=== PATIENT | female | born 1970 | race Caucasian/White ===

== ENCOUNTER → 2018-03-10 09:54 | Outpatient (CLI) | payer BC, SELFPAY ==
[2018-03-10 10:20] LABS: Add Manual Diff / Slide Review NO; Basophils Percent Auto 0.6 % (0-2); Hemoglobin 13.4 g/dL (12.0-16.0); Lymphocytes Percent Auto 40.4 % (25-40); Mean Corpuscular HGB Conc 34.3 % (30-36); Mean Corpuscular Hemoglobin 33.2 PG (26-34); Mean Corpuscular Volume 96.9 fL (80-100); Monocytes Percent Auto 8.4 % (3-14); Neutrophils Absolute Auto 2000 /uL (3000-5900); Neutrophils Percent Auto 48.6 % (50-75); Platelet Count 214 X10^3/uL (150-400); Red Blood Cell Count 4.03 X10^6/uL (4.0-5.2); Red Cell Distribution Width 12.6 % (11.6-14.8); White Blood Cell Count 4.2 X10^3/uL (4.5-11.0)
[2018-03-10 10:27] LABS: Alanine Aminotransferase 28 IU/L (9-52); Albumin 4.6 g/dL (3.5-5.0); Albumin Globulin Ratio 1.8 (1.0-2.8); Alkaline Phosphatase 62 U/L (38-126); Aspartate Aminotransferase 22 IU/L (14-36); BUN Creatinine Ratio 36.7 (6-22); Bilirubin Total 0.8 mg/dL (0.2-1.3); Blood Urea Nitrogen 22 mg/dL (7-17); Calcium 9.6 mg/dL (8.4-10.2); Carbon Dioxide 31 mmol/L (22-32); Chloride 102 mmol/L (98-107); Estimated Glomerular Filt Rate > 60.0 mL/min (>60); Globulin 2.6 g/dL (1.7-4.1); Glucose 88 mg/dL (70-100); HEMOLYSIS < 15 (0-50); Potassium 4.2 mmol/L (3.4-5.1); Sodium 142 mmol/L (137-145); Total Protein 7.2 g/dL (6.3-8.2)
--- NOTE | 2018-03-10 10:44 | DI.CT.S_ITS ---
PROCEDURE: CT CHEST ABD PEL W CON INDICATIONS: surveillance colon cancer TECHNIQUE: After the administration of oral and intravenous contrast, 5 mm thick sections acquired from the lung apices to the symphysis. 5 mm coronal and sagittal reformats were performed, with additional 7 mm coronal MIP reformats through the lungs. For radiation dose reduction, the following was used: automated exposure control, adjustment of mA and/or kV according to patient size. COMPARISON: [facility], CT, ABDOMEN/PELVIS WITH CONTRAST, 04/12/2016, 10:22. [facility], CT, ABDOMEN/PELVIS WITH CONTRAST, 05/07/2016, 11:58. [facility], CT, ABDOMEN/PELVIS WITH CONTRAST, 05/15/2016, 12:22. [facility], CT, ABDOMEN/PELVIS WITHOUT CONTRAS, 05/22/2016, 14:15. [facility], CT, CHEST/ABD/PEL WITH CONTRAST, 12/24/2016, 12:08. [facility], CT, CHEST/ABD/PEL WITH CONTRAST, 11/27/2017, 11:57. FINDINGS: Image quality: Excellent. CHEST: Lungs and pleura: The 4 mm subpleural nodule in the lateral right upper lobe, image 18, is unchanged from the exam of 12/24/2016. No acute airspace opacities. No pleural effusions or pneumothorax. Central and peripheral airways appear patent and normal in caliber. Mediastinum: Heart size is normal. No pericardial effusion. No mediastinal or hilar adenopathy by size criteria. Thoracic aorta and central pulmonary arteries are normal in size. Esophagus is normal in caliber. No hiatal hernia. Chest wall: No axillary or supraclavicular adenopathy by size criteria. Thyroid gland appears normal. ABDOMEN: Solid organs: Liver is normal in size and enhancement. The hypodense lesion in the left lobe of the liver is unchanged at 11 x 14 mm. The hypodense nodule with central vascularity in the posterolateral dome of liver is stable at 8 mm. The lobulated mass in the posterior inferior pole of the right lobe of liver is stable at 2.5 cm AP. Gallbladder appears normal. Biliary system is non dilated. Pancreas enhances normally. Spleen is normal in size and enhancement. No adrenal nodules. Kidneys demonstrate normal size and enhancement, without hydronephrosis. Peritoneum and bowel: Bowel loops demonstrate normal wall thickness and caliber. Suture line is again noted at the rectosigmoid junction, no focal mass lesions or thickening seen. No free fluid or air. Nodes and vessels: No retroperitoneal or mesenteric adenopathy by size criteria. Aorta and inferior vena cava are normal in size. Miscellaneous: No ventral hernias. PELVIS: Genitourinary: Bladder wall thickness is normal. The uterus and adnexa are unremarkable. Miscellaneous: No inguinal hernias or adenopathy. Bones: No suspicious bony lesions. No vertebral body compression fractures. IMPRESSION: 1. Stable, presumably treated hepatic metastases are identified. No new lesions seen. No adenopathy. No focal recurrence at the resection site of the rectosigmoid colon. 2. Stable 4 mm subpleural nodule in the right upper lobe. Dictated by: Anderson Reddy M.D. on 03/10/2018 at 11:49 Approved by: Anderson Reddy M.D. on 03/10/2018 at 12:12
[2018-03-10 11:28] LABS: Carcinoembryonic Antigen 2.1 ng/mL (0.1-3.0)
== END ==
PROVIDERS: Family Provider Physician Assistant Medical; PCP Physician Assistant Medical; Visit Provider Nurse Practitioner Gerontology
DX: C18.7 Malignant neoplasm of sigmoid colon (principal); R91.1 Solitary pulmonary nodule; R16.0 Hepatomegaly, not elsewhere classified
CPT/HCPCS: 36415; 71260; 74177; 80053; 82378; 85025; Q9967

== ENCOUNTER → 2018-05-07 15:14 | Outpatient (CLI) | payer BC, SELFPAY ==
[2018-05-07 15:49] LABS: Add Manual Diff / Slide Review NO; Basophils Percent Auto 0.5 % (0-2); Eosinophils Percent Auto 2.4 % (2-4); Hemoglobin 12.5 g/dL (12.0-16.0); Lymphocytes Percent Auto 40.4 % (25-40); Mean Corpuscular HGB Conc 34.6 % (30-36); Mean Corpuscular Hemoglobin 33.1 PG (26-34); Mean Corpuscular Volume 95.5 fL (80-100); Monocytes Percent Auto 9.2 % (3-14); Neutrophils Absolute Auto 2500 /uL (3000-5900); Neutrophils Percent Auto 47.5 % (50-75); Platelet Count 217 X10^3/uL (150-400); Red Blood Cell Count 3.77 X10^6/uL (4.0-5.2); Red Cell Distribution Width 12.5 % (11.6-14.8); White Blood Cell Count 5.2 X10^3/uL (4.5-11.0)
[2018-05-07 16:09] LABS: Alanine Aminotransferase 50 IU/L (9-52); Albumin 4.4 g/dL (3.5-5.0); Albumin Globulin Ratio 1.8 (1.0-2.8); Alkaline Phosphatase 61 U/L (38-126); Aspartate Aminotransferase 45 IU/L (14-36); BUN Creatinine Ratio 35.7 (6-22); Bilirubin Total 0.7 mg/dL (0.2-1.3); Blood Urea Nitrogen 25 mg/dL (7-17); Calcium 9.2 mg/dL (8.4-10.2); Carbon Dioxide 31 mmol/L (22-32); Chloride 104 mmol/L (98-107); Estimated Glomerular Filt Rate > 60.0 mL/min (>60); Globulin 2.5 g/dL (1.7-4.1); Glucose 100 mg/dL (70-100); HEMOLYSIS < 15 (0-50); Potassium 4.6 mmol/L (3.4-5.1); Sodium 145 mmol/L (137-145); Total Protein 6.9 g/dL (6.3-8.2)
[2018-05-07 16:39] LABS: Carcinoembryonic Antigen 2.2 ng/mL (0.1-3.0)
== END ==
PROVIDERS: Family Provider Physician Assistant Medical; PCP Physician Assistant Medical; Visit Provider Nurse Practitioner Gerontology
DX: C18.7 Malignant neoplasm of sigmoid colon (principal)
CPT/HCPCS: 36415; 80053; 82378; 85025

== ENCOUNTER 2018-06-17 10:51 | Day surgery (SDC) | payer BC, SELFPAY ==
--- NOTE | 2018-06-17 | PATH_ITS ---
[facility] Accession Number: [id number] . 01 Material submitted: . BIOPSY'S AT 15CM . 02 Diagnosis: 15 cm, Biopsy: Colonic mucosa with mild melanosis coli. Negative for active or microscopic colitis. Negative for granulomata, dysplasia or malignancy. MRV/06/18/2018 . 02 Electronically signed: . Fede Foss MD, PhD, Pathologist NPI- [id number] . 01 Gross description: . Received one formalin-filled container labeled with the patient's name and labeled 15 cm are two 0.3 to 0.5 cm portions of tissue. Entirely submitted in one cassette. ([facility]:[id number]) /[facility] . 02 Pathologist provided ICD-10: R19.4 . 02 CPT . 640658 Performed at: 01 [facility] [address] [id number] MD Rafi Hall MD Phone: [phone] Performed at: 02 [facility] [address] [place], [place] [id number] MD Manjeet Mederos MD Phone: [phone]
[2018-06-17 11:11] VITALS: BP 104/66; PULSE 78; RESP 12; TEMP 37; O2SAT 99; BMI 19.3
[2018-06-17] MEDS: SODIUM CHLORIDE 0.9% 1,000 ML 200 ML IV (11:30)
--- NOTE | 2018-06-17 12:21 | PM.HP.1 ---
History of Present Illness Date Patient Seen: 06/17/18 Time Patient Seen: 12:21 Chief complaint: [id number] COLONOSCOPY Narrative: Aleah 48-year-old lady who is 2 years status post sigmoid colon resection for a stage III colon malignancy. She completed all of her treatment and then underwent a repair of an incisional hernia. She returns today for colonoscopy for surveillance. She denies any new problems or symptoms related to her GI tract. She reports she is in her usual state of health. Patient History Family & Social History Family History: Reviewed 06/17/18 by Lizett Mancia MD Social History: household members spouse Meds Home Medications Medication Instructions Recorded Confirmed Type levothyroxine [Synthroid] 0.075 mg PO QDAY #0 03/20/16 06/17/18 History cyanocobalamin (vitamin B-12) 5,000 mcg PO QDAY #0 02/13/17 06/17/18 History [Vitamin B-12] rosuvastatin [Crestor] 5 mg PO QDAY #0 09/11/17 06/17/18 History Allergies Allergy/AdvReac Type Severity Reaction Status Date / Time No Known Drug Allergies Allergy Verified 06/17/18 11:10 Review of Systems Review of Systems All systems reviewed & are unremarkable except as noted in HPI and below Exam Vital Signs (past 8 hours): - 06/17/18 11:11 Temperature 98.6 F Pulse Rate 78 Respiratory Rate 12 Blood Pressure 104/66 Pulse Oximetry 99 Oxygen Delivery Method Room Air Narrative Exam Narrative: Very pleasant well-nourished well-developed lady in no distress HEENT: Normocephalic and atraumatic, pupils equal round reactive to light accommodation with anicteric sclera Lungs: Clear to auscultation bilaterally Heart: Regular rate rhythm without murmur rub or gallop Abdomen: Soft, nontender, active bowel sounds. Lower midline incision is well-healed and without erythema or drainage. Extremities: Warm and well-perfused and without edema. Assessment & Plan Plan: Assessment/Plan Narrative: Wonderful 48-year-old lady here for a surveillance colonoscopy. While she is here today, we are going to remove a irritating stitch from her prior ostomy site. We discussed risks and benefits of colonoscopy and the patient expressed a desire to complete this procedure today
--- NOTE | 2018-06-17 12:24 | P.HP_ITS ---
History of Present Illness Date Patient Seen: 06/17/18 Time Patient Seen: 12:21 Chief complaint: [id number] COLONOSCOPY Narrative: Aleah 48-year-old lady who is 2 years status post sigmoid colon resection for a stage III colon malignancy. She completed all of her treatment and then underwent a repair of an incisional hernia. She returns today for colonoscopy for surveillance. She denies any new problems or symptoms related to her GI tract. She reports she is in her usual state of health. Patient History Family & Social History Family History: Reviewed 06/17/18 by Lizett Mancia MD Social History: household members spouse Meds Home Medications Medication Instructions Recorded Confirmed Type levothyroxine [Synthroid] 0.075 mg PO QDAY #0 03/20/16 06/17/18 History cyanocobalamin (vitamin B-12) 5,000 mcg PO QDAY #0 02/13/17 06/17/18 History [Vitamin B-12] rosuvastatin [Crestor] 5 mg PO QDAY #0 09/11/17 06/17/18 History Allergies Allergy/AdvReac Type Severity Reaction Status Date / Time No Known Drug Allergies Allergy Verified 06/17/18 11:10 Review of Systems Review of Systems All systems reviewed & are unremarkable except as noted in HPI and below Exam Vital Signs (past 8 hours): - 06/17/18 11:11 Temperature 98.6 F Pulse Rate 78 Respiratory Rate 12 Blood Pressure 104/66 Pulse Oximetry 99 Oxygen Delivery Method Room Air Narrative Exam Narrative: Very pleasant well-nourished well-developed lady in no distress HEENT: Normocephalic and atraumatic, pupils equal round reactive to light accommodation with anicteric sclera Lungs: Clear to auscultation bilaterally Heart: Regular rate rhythm without murmur rub or gallop Abdomen: Soft, nontender, active bowel sounds. Lower midline incision is well- healed and without erythema or drainage. Extremities: Warm and well-perfused and without edema. Assessment & Plan Plan: Assessment/Plan Narrative: Wonderful 48-year-old lady here for a surveillance colonoscopy. While she is here today, we are going to remove a irritating stitch from her prior ostomy site. We discussed risks and benefits of colonoscopy and the patient expressed a desire to complete this procedure today
[2018-06-17] MEDS: MIDAZOLAM 5 MG/5 ML VIAL IV (12:53)
[2018-06-17] MEDS: fentaNYL 250 MCG/5 ML INJ IV (12:55)
[2018-06-17] MEDS: LIDOCAINE 2% W/EPI INJ 20 ML INJ (12:58)
--- NOTE | 2018-06-17 13:03 | P.OP_ITS ---
Operative Date/Time/Diagnoses Date of procedure: 06/17/18 Time of procedure: 12:57 Pre-op diagnosis: Personal history of sigmoid colon cancer Post-op diagnosis: same Procedure & Clinicians Procedure: Endoscopy to the level of the anastomosis at 15 cm Same procedure as scheduled: No (Colonoscopy was scheduled ) Indications: Last colonoscopy 2 years ago Surgeon: Lizett Mancia Anesthesia Type: Sedation (Versed 8 mg; fentanyl 300 mcg) Operative Notes Findings: 1. Normal appearing mucosa with a very stenotic anastomosis at 15 cm from the anal verge. Less than 5 mm in diameter. Multiple biopsies were taken in the surrounding tissue. 2. Fragments of PDS suture removed from left anterior abdominal wall incision site. Closure Type: not applicable Specimen(s): other (Mucosal biopsies of 15 cm) Estimated Blood Loss (mL): 1 Procedure in detail: After obtaining informed consent, the patient brought the GI suite placed in left lateral decubitus position on examination table. Following the successful induction of sedation with incremental doses of fentanyl and Versed, a time-out was held per SCOAP protocol the The colonoscope was lubricated and gently passed to 15 cm from the anal verge which was the site of the obvious anastomosis. The anastomosis was visualized centrally and marked with a silk suture. Lateral to that we could see the blind end of the anastomotic pouch. This was explored to be sure this was not the actual lumen. The lumen itself was less than 5 mm in diameter. We initially made an attempt to pass the scope beyond the lumen but realized that the 1 cm scope was going to be far too big to get through the lumen without significant stretching. We pulled the scope back and took biopsies all around this area. Again, the mucosa was normal in appearance. The scope was then withdrawn from the patient's body and the procedure completed. No other mucosal abnormalities were appreciated. The patient was then rolled to the supine position and the left lower quadrant prepped and the standard surgical fashion. A tiny incision was created directly over the stitch that was palpable. Stitch was grasped with a hemostat clamp and removed using scalpel. The wound was checked for hemostasis cleaned again and dressed with Dermabond and a Band-Aid. All sponge , needle, and instrument counts were correct at the conclusion of the case. Patient was allowed to awake from anesthesia without difficulty and taken to the post anesthesia care unit in good condition. Complications: none (Unable to pass the colonoscope beyond 15 cm due to anastomotic stenosis) Condition: stable Disposition: PACU Plan for aftercare: 1. Discharge to home 2. We will discuss options with Afua and Max, her .
[2018-06-17 13:04] VITALS: BP 101/70; PULSE 89; RESP 11; TEMP 36.8; O2SAT 100
[2018-06-17 13:08] VITALS: BP 98/64; PULSE 88; RESP 11; O2SAT 100
--- NOTE | 2018-06-17 13:10 | SUR.PHASEI ---
band aid on abdomen is clean, dry and intact.
--- NOTE | 2018-06-17 13:11 | SUR.PHASEI ---
band aid on abdomen is clean dry and intact
[2018-06-17 13:13] VITALS: BP 105/67; PULSE 88; RESP 12; O2SAT 99
[2018-06-17 13:47] VITALS: BP 100/68; PULSE 80; RESP 14; TEMP 36.9; O2SAT 100
== END 2018-06-17 13:48 | disposition home or self-care (01) ==
LOC: ENDO 10:56
PROVIDERS: Family Provider Physician Assistant Medical; PCP Physician Assistant Medical; Visit Provider Surgery
PROC: 0DJD8ZZ Inspection of Lower Intestinal Tract, Via Natural or Artificial Opening Endoscopic (ICD-10-PCS; CPT 45378; principal; 2018-06-17 12:00)
DX: Z85.038 Personal history of other malignant neoplasm of large intestine (principal); M79.5 Residual foreign body in soft tissue; K62.4 Stenosis of anus and rectum
CPT/HCPCS: 45331; 15850; 99152; J2250; J3010

== ENCOUNTER → 2019-02-27 09:03 | Outpatient (CLI) | payer BC, SELFPAY ==
--- NOTE | 2019-02-27 09:05 | DI.CT.S_ITS ---
PROCEDURE: CT CHEST ABD PEL W CON INDICATIONS: f/u colon cancer TECHNIQUE: After the administration of oral and intravenous contrast, 5 mm thick sections acquired from the lung apices to the symphysis. 5 mm coronal and sagittal reformats were performed, with additional 7 mm coronal MIP reformats through the lungs. For radiation dose reduction, the following was used: automated exposure control, adjustment of mA and/or kV according to patient size. COMPARISON: [facility], CT, ABDOMEN/PELVIS WITH CONTRAST, 04/12/2016, 10:22. [facility], CT, CHEST/ABD/PEL WITH CONTRAST, 11/27/2017, 11:57. [facility], MR, ABDOMEN W&WO CONTRAST, 12/31/2016, 19:24. [facility], CT, CHEST/ABD/PEL WITH CONTRAST, 12/24/2016, 12:08. [facility], CT, CT CHEST ABD PEL W CON, 03/10/2018, 11:08. CT pulmonary angiogram 06/04/2016. FINDINGS: Image quality: Excellent. CHEST: Lungs and pleura: No acute airspace opacities. Stable right upper lobe pulmonary nodule measuring 0.4 cm (), since at least 06/04/2016 suggesting a benign etiology. No new and larger pulmonary nodules. No mass. No pleural effusions or pneumothorax. Central and peripheral airways appear patent and normal in caliber. Mediastinum: Heart size is normal. No pericardial effusion. No mediastinal or hilar adenopathy by size criteria. Thoracic aorta and central pulmonary arteries are normal in size. Esophagus is normal in caliber. No hiatal hernia. Chest wall: No axillary or supraclavicular adenopathy by size criteria. Thyroid gland is unremarkable. ABDOMEN: Solid organs: No new or enlarging hepatic lesion. Stable Segment 6 lesion measuring 2.9 x 2.8 cm, (), remotely measured 2.7 x 2.5 cm in 2016. Stable segment 3 lesion measuring approximately 1.7 x 1.2 cm, (), previously 1.6 x 1.4 cm. These lesions previously demonstrated peripheral nodular discontinuous enhancement as well as no restricted diffusion on the prior MRI and are most compatible with benign hemangiomas rather than metastases. Gallbladder is normal. No biliary ductal dilatation. Spleen is not enlarged. Pancreas is normal. No adrenal nodule. Kidneys enhance symmetrically. No solid renal mass. Peritoneum and bowel: Sigmoid colon and a anastomosis, (/). No mass to suggest local recurrence. Bowel loops demonstrate normal wall thickness and caliber. No free fluid or air. Nodes and vessels: No retroperitoneal or mesenteric adenopathy by size criteria. No aortic aneurysm. The IVC is prominent in size some of the prior exams. Miscellaneous: No ventral hernias. PELVIS: Genitourinary: Bladder wall thickness is normal. Uterus and ovaries are within normal limits. No significant free fluid. Air in the vagina. Miscellaneous: No inguinal hernias or adenopathy. Bones: No suspicious bony lesions. No vertebral body compression fractures. IMPRESSION: No metastatic disease identified. Dictated by: Billy Bradshaw M.D. on 02/27/2019 at 14:02 Approved by: Billy Bradshaw M.D. on 02/27/2019 at 14:21
== END ==
PROVIDERS: Family Provider Physician Assistant Medical; PCP Physician Assistant Medical
DX: C18.7 Malignant neoplasm of sigmoid colon (principal)
CPT/HCPCS: 71260; 74177; Q9967

== ENCOUNTER → 2020-03-29 13:00 | Outpatient (CLI) | payer BC, SELFPAY ==
--- NOTE | 2020-03-29 13:07 | DI.CT.S_ITS ---
PROCEDURE: CT CHEST ABD PEL W CON INDICATIONS: surveillance resected colon cancer TECHNIQUE: After the administration of oral and intravenous contrast, 5 mm thick sections acquired from the lung apices to the symphysis. 5 mm coronal and sagittal reformats were performed, with additional 7 mm coronal MIP reformats through the lungs. For radiation dose reduction, the following was used: automated exposure control, adjustment of mA and/or kV according to patient size. COMPARISON: [facility], CT, ABDOMEN/PELVIS WITH CONTRAST, 05/15/2016, 12:22. [facility], CT, ABDOMEN/PELVIS WITHOUT CONTRAS, 05/17/2016, 16:32. [facility], CT, ABDOMEN/PELVIS WITHOUT CONTRAS, 05/22/2016, 14:15. [facility], CT, ABDOMEN WITHOUT CONTRAST, 05/23/2016, 12:14. [facility], CT, CHEST/ABD/PEL WITH CONTRAST, 12/24/2016, 12:08. [facility], MR, ABDOMEN W&WO CONTRAST, 12/31/2016, 19:24. [facility], CT, CT CHEST ABD PEL W CON, 03/10/2018, 11:08. [facility], CT, CT CHEST ABD PEL W CON, 02/27/2019, 10:19. FINDINGS: Image quality: Excellent. CHEST: Lungs and pleura: The 4 mm nodule in the right upper lobe appears unchanged in size (series 3 image 89). A 6 mm nodule on the left hemidiaphragm (series 2, image 51) is also stable. No acute airspace opacities. No pleural effusions or pneumothorax. Central and peripheral airways appear patent and normal in caliber. Mediastinum: Heart size is normal. No pericardial effusion. No mediastinal or hilar adenopathy by size criteria. Thoracic aorta and central pulmonary arteries are normal in size. Esophagus is normal in caliber. No hiatal hernia. Chest wall: No axillary or supraclavicular adenopathy by size criteria. Thyroid gland is normal. ABDOMEN: Solid organs: Liver is normal in size and enhancement. There is a 2.9 x 2.8 cm mass in the posterior segment of right hepatic lobe (segment 6), stable. A 1.8 cm lesion in the lateral segment of the left hepatic lobe (segment 3) is also unchanged. Gallbladder is normal. Biliary system is non dilated. Pancreas enhances normally. Spleen is normal in size and enhancement. No adrenal nodules. Kidneys demonstrate normal size and enhancement, without hydronephrosis. Peritoneum and bowel: There is surgical anastomosis in distal sigmoid colon. There is a large amount of stool in colon. Bowel loops demonstrate normal wall thickness and caliber. No free fluid or air. Nodes and vessels: No retroperitoneal or mesenteric adenopathy by size criteria. Aorta and inferior vena cava are normal in size. Inhomogeneous enhancement of the SMV is likely a flow related phenomenon. Miscellaneous: No ventral hernias. PELVIS: Genitourinary: Bladder wall thickness is normal. Uterus is unremarkable. No pathological free-fluid. Miscellaneous: No inguinal hernias or adenopathy. Bones: No suspicious bony lesions. No vertebral body compression fractures. IMPRESSION: 1. Stable right upper lobe and left lower lobe nodules. 2. Stable hepatic lesions. 3. No lymphadenopathy in thorax, abdomen or pelvis. 4. A large amount of stool in colon. Dictated by: Eunice Knott M.D. on 03/29/2020 at 16:03 Approved by: Eunice Knott M.D. on 03/29/2020 at 16:47
[2020-03-29 13:24] LABS: Add Manual Diff / Slide Review NO; Basophils Absolute Auto 0 /uL (0-100); Basophils Percent Auto 0.5 % (0-2); Eosinophils Absolute Auto 100 /uL (0-450); Eosinophils Percent Auto 2.2 % (2-4); Hematocrit 38.1 % (36-46); Hemoglobin 13.1 g/dL (12.0-16.0); Lymphocytes Absolute Auto 1400 /uL (1100-4500); Lymphocytes Percent Auto 35.4 % (25-40); Mean Corpuscular HGB Conc 34.5 % (30-36); Mean Corpuscular Hemoglobin 32.7 PG (26-34); Monocytes Absolute Auto 400 /uL (0-900); Monocytes Percent Auto 10.1 % (3-14); Neutrophils Absolute Auto 2000 /uL (1500-7000); Neutrophils Percent Auto 51.8 % (50-75); Platelet Count 223 X10^3/uL (150-400); Red Blood Cell Count 4.01 X10^6/uL (4.0-5.2); Red Cell Distribution Width 12.8 % (11.6-14.8); White Blood Cell Count 3.9 X10^3/uL (4.5-11.0)
[2020-03-29 13:35] LABS: Alanine Aminotransferase 21 IU/L (<35); Albumin 4.6 g/dL (3.5-5.0); Albumin Globulin Ratio 1.6 (1.0-2.8); Alkaline Phosphatase 55 U/L (38-126); Aspartate Aminotransferase 28 IU/L (14-36); BUN Creatinine Ratio 41.4 (6-22); Blood Urea Nitrogen 24 mg/dL (7-17); Calcium 9.5 mg/dL (8.4-10.2); Carbon Dioxide 30 mmol/L (22-32); Chloride 104 mmol/L (98-107); Estimated Glomerular Filt Rate > 60.0 mL/min (>60); Globulin 2.9 g/dL (1.7-4.1); Glucose 94 mg/dL (70-100); HEMOLYSIS < 15 (0-50); Potassium 4.1 mmol/L (3.4-5.1); Sodium 139 mmol/L (137-145); Total Protein 7.5 g/dL (6.3-8.2)
[2020-03-29 14:06] LABS: Carcinoembryonic Antigen 2.2 ng/mL (0.1-3.0)
== END ==
PROVIDERS: Family Provider Physician Assistant Medical; PCP Physician Assistant Medical; Referring Provider Physician Assistant Medical; Visit Provider Internal Medicine Hematology & Oncology
DX: C18.9 Malignant neoplasm of colon, unspecified (principal); R91.8 Other nonspecific abnormal finding of lung field; K76.9 Liver disease, unspecified; Z98.0 Intestinal bypass and anastomosis status
CPT/HCPCS: 36415; 71260; 74177; 80053; 82378; 85025; Q9967

== ENCOUNTER → 2020-08-22 10:08 | Outpatient (CLI) | payer BC, SELFPAY ==
[2020-08-22 11:41] LABS: COVID19 -Nasal RAPID Negative (Negative)
== END ==
PROVIDERS: Family Provider Physician Assistant Medical; PCP Physician Assistant Medical; Visit Provider Surgery
DX: Z01.812 Encounter for preprocedural laboratory examination (principal); Z20.822 Contact with and (suspected) exposure to COVID-19
CPT/HCPCS: 87635; C9803

== ENCOUNTER 2020-08-23 06:34 | Day surgery (SDC) | payer BC, SELFPAY ==
[2020-08-18 07:58] VITALS: BMI 19.1
[2020-08-23] VITALS (8 sets, daily range): BP systolic 96–103; BP diastolic 50–62; PULSE 59–80; RESP 11–20; TEMP 36.2–37; O2SAT 97–100; BMI 19.1
[2020-08-23] MEDS: LACTATED RINGERS 1,000 ML 100 ML IV (07:32)
--- NOTE | 2020-08-23 07:41 | PM.HP.1 ---
History of Present Illness History of Present Illness Date Patient Seen: 08/23/20 Time Patient Seen: 07:41 Chief complaint: EXCISION OF SUTURE GRANULOMA Narrative: 50F hx of colon resection for cancer subsequent anastamotic leak followed by ileostomy and reversal. 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 No interval changes in health. Patient History Medical History Former smoker HLD (hyperlipidemia) Hypothyroid Surgical History History of colon resection (04/2017) History of removal of Port-a-Cath Family & Social History Family History Father Hypertension Heart disease Gallstones Bladder cancer Grandmother Stroke Social History: household members spouse Tobacco & Substance use: Tobacco type cigarettes Smoking Status Former smoker alcohol intake current alcohol intake frequency a few times a week Substance Use Type does not use Meds Home Medications and Allergies Home Medications Medication Instructions Recorded Confirmed Type levothyroxine [Synthroid] 0.075 mg PO QDAY #0 03/20/16 08/23/20 History atorvastatin 10 mg tablet 10 mg PO DAILY 05/18/20 08/23/20 History Allergies Allergy/AdvReac Type Severity Reaction Status Date / Time No Known Drug Allergies Allergy Verified 05/18/20 11:35 Review of Systems Review of Systems Narrative: A 10 point review of systems is negative except as noted in the HPI Exam Vital Signs (past 8 hours): - 08/23/20 07:15 Temperature 98.2 F Pulse Rate 73 Respiratory Rate 16 Blood Pressure 103/62 Pulse Oximetry 98 Oxygen Delivery Method Room Air Narrative Exam Narrative: General-no acute distress, well nourished adult woman HEENT-moist mucous membranes, no scleral icterus Neck-supple, no lymphadenopathy Chest- non labored respirations, clear to auscultation bilaterally Cardiac-regular rate no peripheral edema Abdomen-soft, nontender, non distended Extremities-warm, well perfused Neurological-alert and oriented, no focal deficits Assessment & Plan Assessment and plan (1) Suture granuloma: Status: Acute Assessment & Plan narrative: 50F with a suture granuloma sp multiple abdominal surgeries that requires excision. Attempt was made in office but not able to tolerate as it is at the level of the fascia. Plan for excision in the OR with sedation. Risks including bleeding, infection, damage to surrounding structures discussed.
[2020-08-23] MEDS: CEFAZOLIN 2 GM/100 ML FROZ.PIGGY IV (07:45)
--- NOTE | 2020-08-23 07:56 | SUR.OPER ---
Supine on padded OR bed, head on pillow, arms secured on padded arm boards at <90 degrees abduction, legs uncrossed, safety belt at thigh, tape over blanket over lower legs.
[2020-08-23] MEDS: BUPIVACAINE 0.25% (PF) VIAL 30 ML INJ (07:59)
--- NOTE | 2020-08-23 08:20 | PM.OP.1 ---
Operative Date/Time/Diagnoses Date of procedure: 08/23/20 Time of procedure: 08:21 Pre-op diagnosis: suture granuloma Post-op diagnosis: same Procedure & Clinicians Procedure: excision of suture granuloma Same procedure as scheduled: Yes Indications: 50F multiple prior abdominal surgeries related to colon cancer has a persistent suture granuloma of a fascial suture that could not be excised in office under local anesthesia Surgeon: Joss Tovar Click Yes if Unassisted: Yes Anesthesia Type: MAC +/- Operative Notes Findings: Chronic suture granuloma of the fascia Closure Type: primary Specimen(s): none sent Estimated Blood Loss (mL): 5 Procedure in detail: Patient was brought to the operating room placed supine on table. Bilateral lower extremity compression devices were applied. Anesthesia was induced she was intubated with a LMA. She received Ancef prior to skin incision. She was prepped and draped in sterile fashion. Time-out was performed. An elliptical incision was made on the lower aspect of the midline scar over the suture granuloma. The subcutaneous tissue was excised down the level of the fascia where the suture granuloma was encountered. The suture was sharply excised and removed in its entirety. The wound was irrigated hemostasis was achieved wound was infiltrated with local anesthetic. Subcutaneous tissue was closed in interrupted fashion with 3-0 Vicryl followed by 4-0 Monocryl for the skin and Dermabond. She emerged from anesthesia was transferred to recovery room in stable condition. Complications: none Post-operative Condition: stable Disposition: same day surgery
== END 2020-08-23 09:04 | disposition home or self-care (01) ==
PROVIDERS: Family Provider Physician Assistant Medical; PCP Physician Assistant Medical; Referring Provider Internal Medicine; Visit Provider Surgery
PROC: (CPT 10120; principal; 2020-08-23 07:45)
DX: L92.3 Foreign body granuloma of the skin and subcutaneous tissue (principal); Z18.89 Other specified retained foreign body fragments; E78.5 Hyperlipidemia, unspecified; E03.9 Hypothyroidism, unspecified
CPT/HCPCS: 10120; J0690; J1100; J1885; J2250; J2405; J2704; J3010

== ENCOUNTER → 2021-03-27 08:56 | Outpatient (CLI) | payer BC, SELFPAY ==
--- NOTE | 2021-03-27 08:59 | DI.CT.S_ITS ---
PROCEDURE: CT CHEST ABD PEL W CON INDICATIONS: Follow-up sigmoid colon cancer TECHNIQUE: After the administration of oral and intravenous contrast, axial sections acquired from the supraclavicular neck to the pubic symphysis. Coronal and sagittal reformats were performed. For radiation dose reduction, the following was used: automated exposure control, adjustment of mA and/or kV according to patient size. COMPARISON: [facility], CT, CT CHEST ABD PEL W CON, 02/27/2019, 10:19. [facility], CT, CT CHEST ABD PEL W CON, 03/29/2020, 14:23. FINDINGS: Image quality: Excellent. CHEST: Lower Neck: No enlarged lymph nodes. Thyroid: Within normal limits. Axillae: No enlarged lymph nodes. Chest Wall: Unremarkable. Lungs and Airways: No acute airspace opacity. Right upper lobe pulmonary nodule measuring 0.4 cm, (3/66), unchanged since 2019. Minimal thickening at the left hemidiaphragm is unchanged. Pleura: No pneumothorax or pleural effusions. Heart: Heart size is normal. No pericardial effusion. Small right pericardiac cyst. Thoracic Vessels: The aorta and pulmonary arteries demonstrate normal size. Mediastinum and Rema: No enlarged lymph nodes. Esophagus: No wall thickening. No hiatal hernia. ABDOMEN: Liver: -Hypodense lesion in the left lobe of the liver measures approximately 1.3 cm, (2/61), previously 1.5 cm. Enhancing focus at the posterior aspect. -Hypodense focus at the right dome of the liver is not well seen. not well seen. -Hypodense lesion at the inferior right lobe of the liver measures 3.1 cm, (2/74), unchanged. Enhancing focus suspected at the anterior margin. To these lesions were reported on the remote CT from 2016. No new or enlarging lesions. Gallbladder: Unremarkable. Biliary ducts: Unremarkable. Pancreas: Unremarkable. Spleen: Unremarkable. Adrenal Glands: No nodule. Kidneys and Ureters: Kidneys enhance symmetrically. No hydronephrosis. No solid renal mass. Stomach and Bowel: Stomach, small bowel loops, and colon are unremarkable. Colorectal anastomosis. Bowel anastomosis in the left abdomen. Prominent stool in the transverse colon. Peritoneum: No abnormal intraperitoneal fluid. No free air. Ventral Wall: No hernia. Abdominal Nodes: No retroperitoneal or mesenteric adenopathy by size criteria. Retroperitoneal clips. Vessels: Aorta and inferior vena cava are normal in size. PELVIS: Pelvic Organs: Unremarkable. Bladder: Unremarkable. Pelvic Nodes: No enlarged lymph nodes. Miscellaneous: No inguinal hernias are seen. Bones: No aggressive appearing lesion. IMPRESSION: 1. No definite metastatic disease. 2. Small right upper lobe pulmonary nodule is unchanged since at least 2019. 3. Hepatic lesions appear stable in size. 1 of the lesions at the dome is not well seen which could be due to contrast bolus timing. Lesions were reported in 2016 CT. These could represent hemangioma. No new lesions. -If clinically indicated more definitive characterization could be performed with liver MRI or multiphase liver CT. 4. No enlarged lymph nodes. 5. Prominent stool in the transverse colon. Dictated by: Billy Bradshaw M.D. on 03/27/2021 at 12:14 Approved by: Billy Bradshaw M.D. on 03/27/2021 at 12:45
[2021-03-27 09:26] LABS: Add Manual Diff / Slide Review NO; Basophils Absolute Auto 0 /uL (0-100); Basophils Percent Auto 0.6 % (0-2); Eosinophils Absolute Auto 100 /uL (0-450); Eosinophils Percent Auto 2.1 % (2-4); Hemoglobin 13.1 g/dL (12.0-16.0); Lymphocytes Absolute Auto 1600 /uL (1100-4500); Lymphocytes Percent Auto 34.2 % (25-40); Mean Corpuscular HGB Conc 33.5 % (30-36); Mean Corpuscular Hemoglobin 32.2 PG (26-34); Mean Corpuscular Volume 96.2 fL (80-100); Monocytes Absolute Auto 500 /uL (0-900); Neutrophils Absolute Auto 2500 /uL (1500-7000); Neutrophils Percent Auto 53.1 % (50-75); Platelet Count 206 X10^3/uL (150-400); Red Blood Cell Count 4.06 X10^6/uL (4.0-5.2); Red Cell Distribution Width 12.8 % (11.6-14.8); White Blood Cell Count 4.7 X10^3/uL (4.5-11.0)
[2021-03-27 09:37] LABS: Alanine Aminotransferase 23 IU/L (<35); Albumin 4.3 g/dL (3.5-5.0); Albumin Globulin Ratio 1.5 (1.0-2.8); Alkaline Phosphatase 57 U/L (38-126); Aspartate Aminotransferase 32 IU/L (14-36); BUN Creatinine Ratio 35.2 (6-22); Bilirubin Total 1.1 mg/dL (0.2-1.3); Blood Urea Nitrogen 19 mg/dL (7-17); Calcium 9.6 mg/dL (8.4-10.2); Carbon Dioxide 31 mmol/L (22-32); Chloride 107 mmol/L (98-107); Estimated Glomerular Filt Rate > 60.0 mL/min (>60); Globulin 2.8 g/dL (1.7-4.1); Glucose 96 mg/dL (70-100); HEMOLYSIS < 15 (0-50); Potassium 4.6 mmol/L (3.4-5.1); Sodium 141 mmol/L (137-145); Total Protein 7.1 g/dL (6.3-8.2)
[2021-03-27 10:08] LABS: Carcinoembryonic Antigen 2.6 ng/mL (0.1-3.0)
== END ==
PROVIDERS: Family Provider Physician Assistant Medical; PCP Physician Assistant Medical; Referring Provider Internal Medicine; Visit Provider Internal Medicine
DX: C18.7 Malignant neoplasm of sigmoid colon (principal); R91.8 Other nonspecific abnormal finding of lung field; K76.9 Liver disease, unspecified
CPT/HCPCS: 36415; 71260; 74177; 80053; 82378; 85025; Q9967

== ENCOUNTER → 2022-11-30 11:08 | Outpatient (CLI) | payer BC, SELFPAY ==
--- NOTE | 2022-11-30 | DI.MG.S_ITS ---
BILATERAL DIGITAL SCREENING MAMMOGRAM 3D/2D WITH CAD: 11/30/2022 CLINICAL: Routine screening. Comparison is made to exams dated: 07/10/2021 mammogram, 10/28/2019 mammogram, 10/31/2018 mammogram, and 10/11/2014 mammogram - [facility]. Both breasts are heterogeneously dense, which may obscure small masses (category c / 51-75% glandular tissue). Current study was also evaluated with a Computer Aided Detection (CAD) system. No significant masses, calcifications, or other findings are seen in either breast. There has been no significant interval change. IMPRESSION: NEGATIVE There is no mammographic evidence of malignancy. A 1 year screening mammogram is recommended. Based on the Tyrer Cuzick model (a risk assessment model) the patient's lifetime risk is 8.1% and her 10 year risk is 2.2%. According to the ACR, ACS, and NCCN guidelines, an annual breast MRI exam along with mammogram is recommended if the patient's lifetime risk is 20% or greater. This exam was interpreted at Station ID: [id number]. NOTE: For mammograms, a report in lay terms will be sent to the patient. Approximately 15% of breast malignancies will not be visualized mammographically. In the management of a palpable breast mass, a negative mammogram must not discourage biopsy of a clinically suspicious lesion. Electronically Signed By: Rob cabrera/jarett:11/30/2022 12:42:57 letter sent: Normal Exam ACR BI-RADS Category 1: Negative 3341F
== END ==
PROVIDERS: Family Provider Physician Assistant Medical; PCP Registered Nurse; Referring Provider Registered Nurse; Visit Provider Registered Nurse
DX: Z12.31 Encounter for screening mammogram for malignant neoplasm of breast (principal)
CPT/HCPCS: 77063; 77067

== ENCOUNTER → 2023-07-29 15:43 | Outpatient (CLI) | payer BC, SELFPAY ==
--- NOTE | 2023-07-29 15:47 | DI.RAD.S_ITS ---
PROCEDURE: STERNOCLAVICULAR JOINT BI INDICATIONS: LOW RIGHT BACK PAIN TECHNIQUE: 3 views of the sternoclavicular joints acquired. COMPARISON: None. FINDINGS: Bones: No fractures or dislocations. No suspicious bony destruction or sclerosis. Soft tissues: Visualized lung apices are clear. No suspicious soft tissue calcifications or densities. IMPRESSION: Unremarkable bilateral sternoclavicular joints Approved by: Julio Cesar Mcgarry M.D. on 07/29/2023 at 20:16
--- NOTE | 2023-07-29 15:47 | DI.RAD.S_ITS ---
PROCEDURE: XR LUMBAR SPINE 2-3V INDICATIONS: LOW RIGHT BACK PAIN TECHNIQUE: 3 views of the lumbar spine were acquired. COMPARISON: [facility], , L-SPINE 2-3 VIEWS, 01/25/2017, 15:19. FINDINGS: Bones: 5 [id number] vertebrae are present. There is normal bony alignment. No vertebral body compression fractures. No suspicious bony lesions. Degenerative convex left thoracolumbar scoliosis. Mild hypertrophic arthropathy noted in the lower lumbar spine. Soft tissues: Overlying bowel gas pattern is normal. No suspicious soft tissue calcifications. Retroperitoneal presacral surgical clips and probable suture line IMPRESSION: Degenerative changes without lytic or blastic lesion Thoracolumbar levoscoliosis, increased from the prior Approved by: Julio Cesar Mcgrary M.D. on 07/29/2023 at 19:53
== END ==
PROVIDERS: Family Provider Physician Assistant Medical; PCP Registered Nurse; Referring Provider Internal Medicine; Visit Provider Internal Medicine
DX: M54.50 Low back pain, unspecified (principal); M41.9 Scoliosis, unspecified
CPT/HCPCS: 71130; 72100

== ENCOUNTER → 2024-02-10 07:33 | Outpatient (CLI) | payer BC, SELFPAY ==
--- NOTE | 2024-02-10 07:34 | DI.MG.S_ITS ---
BILATERAL DIGITAL SCREENING MAMMOGRAM 3D/2D WITH CAD: 02/10/2024 CLINICAL: Routine screening. Family history of breast cancer. Comparison is made to exams dated: 11/30/2022 mammogram - [facility], 07/10/2021 mammogram, and 10/28/2019 mammogram - [facility]. Both breasts are heterogeneously dense, which may obscure small masses (category c / 51-75% glandular tissue). Current study was also evaluated with a Computer Aided Detection (CAD) system. No significant masses, calcifications, or other findings are seen in either breast. There has been no significant interval change. IMPRESSION: NEGATIVE There is no mammographic evidence of malignancy. A 1 year screening mammogram is recommended. Based on the Tyrer Cuzick model (a risk assessment model) the patient's lifetime risk is 11.6% and her 10 year risk is 3.4%. According to the ACR, ACS, and NCCN guidelines, an annual breast MRI exam along with mammogram is recommended if the patient's lifetime risk is 20% or greater. This exam was interpreted at Station ID: [id number]. NOTE: For mammograms, a report in lay terms will be sent to the patient. Approximately 15% of breast malignancies will not be visualized mammographically. In the management of a palpable breast mass, a negative mammogram must not discourage biopsy of a clinically suspicious lesion. Electronically Signed By: Dhaval almanza/jarett:02/10/2024 09:12:44 letter sent: Normal Exam ACR BI-RADS Category 1: Negative 3341F
== END ==
PROVIDERS: Family Provider Physician Assistant Medical; PCP Registered Nurse; Referring Provider Registered Nurse; Visit Provider Registered Nurse
DX: Z12.31 Encounter for screening mammogram for malignant neoplasm of breast (principal); Z80.3 Family history of malignant neoplasm of breast; R92.333 Mammographic heterogeneous density, bilateral breasts
CPT/HCPCS: 77063; 77067

== ENCOUNTER → 2025-07-29 14:49 | Outpatient (CLI) | payer BC, SELFPAY ==
--- NOTE | 2025-07-29 14:50 | DI.MG.S_ITS ---
MM screening mammo BI: 07/29/2025. BI-RADS: 0 CLINICAL: 55-year old female for bilateral screening mammogram. Tyrer-Cuzick lifetime risk of 5.2%. No personal or first-degree family history of breast cancer. PRIOR EXAMS 02/10/2024, 11/30/2022, 08/23/2021, 07/10/2021. MAMMOGRAPHY TECHNIQUE: 2D and 3D (tomosynthesis) digital mammographic views obtained, with additional images as needed for full coverage. Current study was also evaluated with a Computer Aided Detection (CAD) system. DENSITY C. The breasts are heterogeneously dense, which may obscure small masses. MAMMOGRAPHY FINDINGS Right: Upper Outer Quadrant, Anterior depth: Focal asymmetry needing additional imaging evaluation. Left: No suspicious mass, asymmetry, microcalcification, or other abnormality seen. IMPRESSION: Right (Asymmetry): Upper Outer Quadrant, Anterior depth * Incomplete - focal asymmetry needing additional imaging evaluation. Left * No evidence of malignancy. RECOMMENDATIONS Right: Upper Outer Quadrant, Anterior depth * Further evaluation with diagnostic mammography and diagnostic ultrasound. Ultrasound to be performed only if needed. OVERALL ASSESSMENT CATEGORY BI-RADS-0: Incomplete - Need Additional Imaging Evaluation. ELECTRONICALLY SIGNED: Radha Brady M.D. on 08/02/2025 at 12:12:50 PM PT Interpreting Station ID: [id number]
== END ==
LOC: MAMMO 14:49
PROVIDERS: Family Provider Physician Assistant Medical; PCP Registered Nurse; Referring Provider Registered Nurse; Visit Provider Registered Nurse
DX: Z12.31 Encounter for screening mammogram for malignant neoplasm of breast (principal); R92.333 Mammographic heterogeneous density, bilateral breasts
CPT/HCPCS: 77063; 77067